=== PATIENT | female | born 2000 ===

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

== ENCOUNTER → 2019-06-24 | Outpatient (CLI) | payer OTHER ==
[2019-06-25 08:10] LABS: HIV SCREEN 4TH GENERATION WRFX Non Reactive (Non Reactive)
== END | disposition home or self-care (01) ==
LOC: LAB SHORT 10:01 → LAB EV 10:01
PROVIDERS: Family Medicine
DX: Z20.9 Contact with and (suspected) exposure to unspecified communicable disease (principal)
CPT/HCPCS: 86803; 87389

== ENCOUNTER → 2019-07-11 | Outpatient (CLI) | payer OTHER | LOC: LAB SHORT 17:27 → LAB 17:27 | DX: Z11.59 Encounter for screening for other viral diseases (principal) | CPT/HCPCS: 86317 ==

== ENCOUNTER → 2020-08-03 | Outpatient (CLI) | payer OTHER | END | disposition home or self-care (01) | LOC: LAB 18:30 → LAB EV 18:30 → LAB SHORT 18:30 | DX: N39.0 Urinary tract infection, site not specified (principal) | CPT/HCPCS: 87077; 87086; 87186 ==